=== PATIENT | male | born 1950 | race Caucasian/White ===

== ENCOUNTER → 2018-04-24 | Outpatient (CLI) | payer MEDICARE ==
[2018-04-24 15:52] LABS: ADD MAN DIFF? NO
[2018-04-24 15:59] LABS: BASO % 1 % (0-3); EOS # 0.3 x10^3/uL (0.0-0.7); EOS % 5 % (0-3); HEMATOCRIT 38.1 % (39.0-53.0); LYMPH # 1.5 x10^3/uL (1.0-4.8); LYMPH % 21 % (24-48); MEAN CORPUSCULAR HEMOGLOBIN 29 pg (25-35); MEAN CORPUSCULAR HGB CONC 34 g/dL (31-37); MEAN CORPUSCULAR VOLUME 85 fL (79-100); MONO # 0.5 x10^3/uL (0.0-1.1); MONO % 7 % (0-9); NEUT # 4.6 x10^3uL (1.8-7.7); NEUT % 67 % (31-73); PLATELET COUNT 253 x10^3/uL (140-400); RED BLOOD COUNT 4.46 x10^6/uL (4.30-5.70); RED CELL DISTRIBUTION WIDTH 13.9 % (11.5-14.5); WHITE BLOOD COUNT 6.9 x10^3/uL (4.0-11.0)
[2018-04-24 16:10] LABS: ALBUMIN 3.4 g/dL (3.4-5.0); ALBUMIN/GLOBULIN RATIO 0.8 (1.0-1.7); ALK PHOS 88 U/L (46-116); ALT (SGPT) 23 U/L (16-63); ANION GAP 8 (6-14); AST (SGOT) 12 U/L (15-37); BLOOD UREA NITROGEN 21 mg/dL (8-26); BUN/CREATININE RATIO 12 (6-20); CARBON DIOXIDE 28 mmol/L (21-32); CHLORIDE 101 mmol/L (98-107); CREATININE 1.7 mg/dL (0.7-1.3); GFR 40.4; GLUCOSE 262 mg/dL (70-99); SODIUM 137 mmol/L (136-145); TOTAL BILIRUBIN 0.2 mg/dL (0.2-1.0); TOTAL PROTEIN 7.6 g/dL (6.4-8.2)
[2018-04-25 02:15] LABS: HEMOGLOBIN A1C 7.4 % (4.8-5.6)
[2018-04-25 09:19] LABS: MRSA BY PCR Negative (Negative)
== END | disposition home or self-care (01) ==
LOC: SURGPAT 13:22
DX: Z01.818 Encounter for other preprocedural examination (principal); M48.061 Spinal stenosis, lumbar region without neurogenic claudication; M51.16 Intervertebral disc disorders with radiculopathy, lumbar region; I10 Essential (primary) hypertension; E11.9 Type 2 diabetes mellitus without complications
CPT/HCPCS: 36415; 80053; 83036; 85025; 87641; 93005

== ENCOUNTER 2018-05-11 07:06 | Day surgery (SDC) | payer MEDICARE ==
[~2018-05-11 07:06] MED LIST: IV RINGERS,LACTATED 1000ML 1,000 ML IV; LIDOCAINE 1% PF 2 ML VIAL. ID; MORPHINE SULFATE 2 MG/ML DISP.SYRIN. IV; ONDANSETRON PF 4 MG/2 ML VIAL. IV; PROCHLORPERAZINE 10 MG/2 ML VIAL. IV; ceFAZolin 2GM PREMIX 2 GM/50 ML BAG IV; fentaNYL PF VIAL 100 MCG/2 ML VIAL IV
[2018-05-11] MEDS ORDERED: DEXAMETHASONE SOD PHOS 20 MG/5 ML VIAL. IV (07:30)
[2018-05-11] MEDS ORDERED: LIDOCAINE 2% PF Vial for OR 5 ML VIAL. (07:51)
[2018-05-11] MEDS ORDERED: DEXAMETHASONE SOD PHOS 20 MG/5 ML VIAL. (07:51)
[2018-05-11] MEDS ORDERED: PROPOFOL 20 ML IV (07:51)
[2018-05-11] MEDS ORDERED: ONDANSETRON PF 4 MG/2 ML VIAL. (07:51)
[2018-05-11] MEDS ORDERED: fentaNYL PF VIAL 100 MCG/2 ML VIAL ×2 (07:52→11:44)
[2018-05-11] MEDS ORDERED: MIDAZOLAM HCL/PF 2 MG/2 ML VIAL. (07:52)
[2018-05-11] MEDS ORDERED: FAMOTIDINE 20 MG/2 ML VIAL (07:52)
[2018-05-11] MEDS ORDERED: REMIFENTANIL 1 MG VIAL. IV ×2 (07:52)
[2018-05-11] MEDS ORDERED: ROCURONIUM 50 MG/5 ML VIAL. (07:53)
[2018-05-11 07:59] LABS: POC GLUCOSE 216 mg/dL (70-99)
[2018-05-11] MEDS ORDERED: PROPOFOL 50 ML IV ×2 (07:59→09:39)
[2018-05-11] MEDS: IV RINGERS,LACTATED 1000ML 1,000 ML IV (07:59)
[2018-05-11] MEDS: SCOPOLAMINE 1.5MG PATCH. TD (08:04)
[2018-05-11] MEDS: INSULIN ASPART 100 UNIT/ML 10ML VIAL. SQ (08:23)
[2018-05-11] MEDS ORDERED: diphenhydrAMINE 50 MG/ML VIAL (08:59)
[2018-05-11] MEDS ORDERED: NEOSTIGMINE METHYLSULFATE 5 MG/5 ML SYRINGE. (08:59)
[2018-05-11] MEDS ORDERED: GLYCOPYRROLATE 1 MG/5 ML VIAL. (08:59)
[2018-05-11] MEDS ORDERED: PHENYLEPHRINE in 0.9% NACL PF 1 MG/10 ML SYRINGE. IV (09:15)
[2018-05-11] MEDS: GELATIN SPONGE SIZE 100. (09:17)
[2018-05-11] MEDS: BACITRACIN 50,000 UNIT in IV NORMAL SALINE 1000ML BAG 1,000 ML IRR (09:17)
[2018-05-11] MEDS: KETOROLAC 60 MG/2 ML INJ FOR OR. (09:17)
[2018-05-11] MEDS: THROMBIN TOPICAL 20,000 UNIT SPRAY.SYRN KIT TP (09:17)
[2018-05-11] MEDS: BUPIVAC MPF-EPI 0.5%-1:200000 30 ML VIAL. INJ (09:17)
[2018-05-11] MEDS ORDERED: ePHEDrine PF IN SALINE 50 MG/5 ML DISP.SYRIN IV (09:48)
[2018-05-11] MEDS ORDERED: DESFLURANE > 120 MINUTES IH (10:19)
[2018-05-11 11:33] LABS: POC GLUCOSE 162 mg/dL (70-99)
[2018-05-11] MEDS: fentaNYL PF VIAL 100 MCG/2 ML VIAL IV ×2 (11:48→12:10)
[2018-05-11] MEDS: HYDROcodone/APAP 7.5/325MG 1 TAB TABLET PO (12:09)
== END 2018-05-11 13:32 | disposition home or self-care (01) ==
LOC: SURG 07:06
DX: M51.16 Intervertebral disc disorders with radiculopathy, lumbar region (principal); M48.061 Spinal stenosis, lumbar region without neurogenic claudication; I10 Essential (primary) hypertension; E11.9 Type 2 diabetes mellitus without complications; E78.00 Pure hypercholesterolemia, unspecified; Z79.82 Long term (current) use of aspirin; Z79.899 Other long term (current) drug therapy; Z90.5 Acquired absence of kidney; Z98.890 Other specified postprocedural states; Z72.89 Other problems related to lifestyle; Z83.3 Family history of diabetes mellitus
CPT/HCPCS: 63030; 76000; 82962; 88304; 88311; 97161-GP; A7015; G8978-CK-GP; G8979-CK-GP; G8980-CK-GP; J0690; J1100; J1200; J1885; J2001; J2250; J2370; J2405; J2704; J2710; J3010; J3490; J7030; J7120; S0028